=== PATIENT | male | born 1975 | race Caucasian/White ===

== ENCOUNTER 2021-05-29 00:11 | Emergency (ER) | payer SELFPAY ==
[~2021-05-29] VITALS: Ht 175.3 cm; Wt 83.9 kg
[2021-05-29 00:11] VITALS: BP 128/92
--- NOTE | 2021-05-29 00:37 | PHYS DOC ---
General Adult EDM: Chief Complaint: ABDOMINAL PAIN HPI: HPI: 46-year-old male presents with right lower quadrant abdominal pain. He has been having intermittent pain off and on for at least couple weeks. The patient feels like he gets an intermittent bulge in that area especially when he is working all day outside. It comes and goes. It is soft and not firm. He is concerned about hernia. He also still has an appendix. He denies fever or chills. He has no nausea, vomiting, diarrhea. Review of Systems: Review of Systems: Constitutional: Denies fever or chills Eyes: Denies change in visual acuity HENT: Denies nasal congestion or sore throat Respiratory: Denies cough or shortness of breath Cardiovascular: Denies chest pain or edema GI: Right lower quadrant abdominal pain. Denies nausea, vomiting, bloody stools or diarrhea : Denies dysuria Musculoskeletal: Denies back pain or joint pain Integument: Denies rash Neurologic: Denies headache, focal weakness or sensory changes Endocrine: Denies polyuria or polydipsia Lymphatic: Denies swollen glands Psychiatric: Denies depression or anxiety Current Medications: Current Meds: Current Medications Medications (Trade) Dose Ordered Sig/Alena Start Time Stop Time Status Last Admin Dose Admin Iohexol (Omnipaque 300 Mg/ml) 75 ml 1X ONCE 05/29/21 00:30 05/29/21 00:31 UNV Allergies: Allergies: Allergies Coded Allergies Type Severity Reaction Last Updated Verified Penicillins Allergy Unknown 05/29/21 Yes Physical Exam: PE: Constitutional: Well developed, well nourished, no acute distress, non-toxic appearance. [] HENT: Normocephalic, atraumatic, bilateral external ears normal, oropharynx moist, no oral exudates, nose normal. [] Eyes: PERRLA, EOMI, conjunctiva normal, no discharge. [] Neck: Normal range of motion, no tenderness, supple, no stridor. [] Cardiovascular:Heart rate regular rhythm, no murmur [] Lungs & Thorax: Bilateral breath sounds clear to auscultation [] Abdomen: Bowel sounds normal, soft, no tenderness, no masses, no pulsatile masses. [] Skin: Warm, dry, no erythema, no rash. [] Back: No tenderness, no CVA tenderness. [] Extremities: No tenderness, no cyanosis, no clubbing, ROM intact, no edema. [] Neurologic: Alert and oriented X 3, normal motor function, normal sensory function, no focal deficits noted. [] Psychologic: Affect normal, judgement normal, mood normal. [] EKG: EKG: [] Radiology/Procedures: Radiology/Procedures: [] Impressions: Study: CT abdomen/pelvis with intravenous contrast Indication: Right lower quadrant abdominal pain. Possible hernia. Comparison: None. Technique: Helical CT imaging performed of the abdomen and pelvis after the intravenous administration of 75 cc Omnipaque 300 contrast. Sagittal and coronal reformats were obtained. One or more of the following individualized dose reduction techniques were utilized for this examination: 1. Automated exposure control 2. Adjustment of the mA and/or kV according to patient size 3. Use of iterative reconstruction technique. Findings: Minimal basilar volume loss. Unremarkable lower mediastinum. Small amount of localized fatty infiltration adjacent to the falciform ligament. A few subcentimeter foci of hypoattenuation such as at the upper aspect of the left hepatic lobe, image 12 series 2, are incompletely characterized but statistically most likely benign. Per consensus recommendations, no dedicated follow-up is needed unless otherwise clinically indicated. Unremarkable gallbladder, biliary tree, pancreas and adrenal glands. Upper limits of normal size of the spleen measuring just over 13 cm craniocaudal. Exophytic cyst measuring simple density off the mid left kidney. No complex cyst or mass. Symmetric renal enhancement. No hydronephrosis. Deformity of the urinary bladder in the setting of prominent right more so than left perivesicular fat. This fat is not well delineated to suggest a discrete lipoma. The prostate is within normal limits. No acute abnormality of the colon. Normal appendix. Mildly thick-walled jejunum preferentially extends along the right aspect of the abdomen. The third portion of the duodenum crosses the midline. There is some twisting of the mesenteric vasculature but the SMV and partially assessed branches remain opacified. A few segments of small bowel are mildly dilated. No pneumatosis. The stomach is within normal limits. Mild calcific atherosclerosis at a few locations. Nonaneurysmal aorta. Patent central portal veins. No lymphadenopathy by size criteria. No free fluid or pneumoperitoneum. Fat-containing inguinal hernia on the left. Smaller in the cross-sectional dimension but more complex and longer inguinal hernia on the right with some edema/fatty stranding within the hernia sac and extension of the hernia down towards the scrotum. No acute or aggressive osseous process. Mild degenerative changes at a few locations. Impression: 1. Bilateral fat-containing inguinal hernias. The right inguinal hernia is smaller in cross-sectional dimension relative to the left but is longer in extent traversing down towards the scrotum. There is also some edema and fatty stranding within the hernia sac which could indicate a component of incarceration. Recommend correlation for reducibility. 2. Preferential distribution of jejunum within the right aspect of the abdomen with mild wall thickening in this region and minimal dilatation however this could be physiologic as there is no malrotation, distal small bowel collapse or mesenteric edema to suggest obstruction/internal hernia. 3. Upper limits of normal size of the spleen. 4. There is a component of right more so than left pelvic lipomatosis with resultant deformity of the urinary bladder. Electronically signed by: KARIN BALLESTEROS MD (05/29/2021 1:56 AM) [facility] DICTATED AND SIGNED BY: KARIN BALLESTEROS MD DATE: 05/29/21144 CC: YEHUDA BOND DO; MANSOOR HART DO ~MTH0 0 Heart Score: C/O Chest Pain: N/A Risk Factors: Risk Factors: DM, Current or recent (<one month) smoker, HTN, HLP, family history of CAD, obesity. Risk Scores: Score 0 - 3: 2.5% MACE over next 6 weeks - Discharge Home Score 4 - 6: 20.3% MACE over next 6 weeks - Admit for Clinical Observation Score 7 - 10: 72.7% MACE over next 6 weeks - Early Invasive Strategies Course & Med Decision Making: Course & Med Decision Making Pertinent Labs and Imaging studies reviewed. (See chart for details) The patient's labs are unremarkable. His urinalysis is negative for infection. The patient CT scan does show bilateral inguinal hernias. There is bowel in the right hernia with some edema and stranding. Patient has minimal to no pain at this time so incarceration seems less likely. It does appear to be freely mobile. I have encouraged the patient to follow-up with the general surgeon to consider repair soon as possible. He is stable for discharge at this time. [] Dragon Disclaimer: Dragon Disclaimer: This electronic medical record was generated, in whole or in part, using a voice recognition dictation system. Departure Departure: Impression: Primary Impression: Inguinal hernia bilateral, non-recurrent Qualified Codes: K40.20 - Bilateral inguinal hernia, without obstruction or gangrene, not specified as recurrent Disposition: 01 HOME / SELF CARE / HOMELESS Condition: STABLE Referrals: MANSOOR HART DO (PCP) Patient Instructions: Inguinal Hernia, Adult YEHUDA BOND DO May 29, 2021 00:37
[2021-05-29] MEDS ORDERED: CONTRAST GIVEN. MC PRN (00:45)
[2021-05-29] MEDS ORDERED: IOHEXOL 300 MG/ML 75 ML VIAL. IV ONE (01:00)
[2021-05-29 01:21] LABS: BASO # 0.1 x10^3/uL (0.0-0.2); BASO % 1 % (0-3); EOS # 0.3 x10^3/uL (0.0-0.7); EOS % 2 % (0-3); HEMATOCRIT 42.2 % (39.0-53.0); HEMOGLOBIN 14.6 g/dL (13.0-17.5); LYMPH # 2.7 x10^3/uL (1.0-4.8); LYMPH % 26 % (24-48); MEAN CORPUSCULAR HEMOGLOBIN 32 pg (25-35); MEAN CORPUSCULAR HGB CONC 35 g/dL (31-37); MEAN CORPUSCULAR VOLUME 93 fL (79-100); MONO # 0.8 x10^3/uL (0.0-1.1); MONO % 8 % (0-9); NEUT # 6.7 x10^3uL (1.8-7.7); NEUT % 63 % (31-73); PLATELET COUNT 217 x10^3/uL (140-400); RED BLOOD COUNT 4.54 x10^6/uL (4.30-5.70); RED CELL DISTRIBUTION WIDTH 13.5 % (11.5-14.5); WHITE BLOOD COUNT 10.6 x10^3/uL (4.0-11.0)
[2021-05-29 01:27] LABS: BILIRUBIN,URINE SMALL (NEG); CLARITY,URINE CLEAR; COLOR,URINE AMBER; GLUCOSE,URINE NEG (NEG); NITRITE,URINE NEG (NEG)
[2021-05-29 01:28] LABS: BACTERIA,URINE 0 /HPF (0-FEW); RBC,URINE 0 /HPF (0-2); SQUAMOUS EPITHELIAL CELL,UR OCC /LPF; WBC,URINE RARE /HPF (0-4)
[2021-05-29 01:31] LABS: CALCIUM 8.7 mg/dL (8.5-10.1); CREATININE 1.2 mg/dL (0.7-1.3); GFR 64.9; POTASSIUM 3.5 mmol/L (3.5-5.1)
[2021-05-29 01:37] LABS: ALBUMIN/GLOBULIN RATIO 1.3 (1.0-1.7); TOTAL BILIRUBIN 0.7 mg/dL (0.2-1.0); TOTAL PROTEIN 7.2 g/dL (6.4-8.2)
--- NOTE | 2021-05-29 01:58 | RAD ---
Study: CT abdomen/pelvis with intravenous contrast Indication: Right lower quadrant abdominal pain. Possible hernia. Comparison: None. Technique: Helical CT imaging performed of the abdomen and pelvis after the intravenous administratio n of 75 cc Omnipaque 300 contrast. Sagittal and coronal reformats were obtained. One or more of the following individualized dose reduction techniques were utilized for this examinat ion: 1. Automated exposure control 2. Adjustment of the mA and/or kV according to patient size 3. Use of iterative reconstruction technique. Findings: Minimal basilar volume loss. Unremarkable lower mediastinum. Small amount of localized fatty infiltration adjacent to the falciform ligament. A few subcentimeter foci of hypoattenuation such as at the upper aspect of the left hepatic lobe, image 12 series 2, are incompletely characterized but statistically most likely benign. Per consensus recommendations, no de dicated follow-up is needed unless otherwise clinically indicated. Unremarkable gallbladder, biliary tree, pancreas and adrenal glands. Upper limits of normal size of the spleen measuring just over 13 c m craniocaudal. Exophytic cyst measuring simple density off the mid left kidney. No complex cyst or mass. Symmetric r enal enhancement. No hydronephrosis. Deformity of the urinary bladder in the setting of prominent rig ht more so than left perivesicular fat. This fat is not well delineated to suggest a discrete lipoma. The prostate is within normal limits. No acute abnormality of the colon. Normal appendix. Mildly thick-walled jejunum preferentially extend s along the right aspect of the abdomen. The third portion of the duodenum crosses the midline. There is some twisting of the mesenteric vasculature but the SMV and partially assessed branches remain op acified. A few segments of small bowel are mildly dilated. No pneumatosis. The stomach is within norm al limits. Mild calcific atherosclerosis at a few locations. Nonaneurysmal aorta. Patent central portal veins. N o lymphadenopathy by size criteria. No free fluid or pneumoperitoneum. Fat-containing inguinal hernia on the left. Smaller in the cross-sectional dimension but more complex and longer inguinal hernia on the right with some edema/fatty stranding within the hernia sac and extension of the hernia down tow ards the scrotum. No acute or aggressive osseous process. Mild degenerative changes at a few locations. Impression: 1. Bilateral fat-containing inguinal hernias. The right inguinal hernia is smaller in cross-sectiona l dimension relative to the left but is longer in extent traversing down towards the scrotum. There i s also some edema and fatty stranding within the hernia sac which could indicate a component of incar ceration. Recommend correlation for reducibility. 2. Preferential distribution of jejunum within the right aspect of the abdomen with mild wall thicke cleo in this region and minimal dilatation however this could be physiologic as there is no malrotati on, distal small bowel collapse or mesenteric edema to suggest obstruction/internal hernia. 3. Upper limits of normal size of the spleen. 4. There is a component of right more so than left pelvic lipomatosis with resultant deformity of th e urinary bladder. Electronically signed by: KARIN BALLESTEROS MD (05/29/2021 1:56 AM) [facility]
== END 2021-05-29 02:24 | disposition home or self-care (01) ==
LOC: ER 00:11
DX: K40.20 Bilateral inguinal hernia, without obstruction or gangrene, not specified as recurrent (principal); Z88.0 Allergy status to penicillin
CPT/HCPCS: 36415; 74177; 80053; 81001; 85025; 99285; Q9967